=== PATIENT | female | born 1975 | race American Indian/Alaskan Native ===

== ENCOUNTER 2016-05-03 13:32 | Outpatient (CLI) | payer OTHER ==
[2016-05-03 14:00] LABS: Basophils % (Auto) 0.4 % (0.0-1.8); Eosinophils % (Auto) 0.1 % (0.0-4.3); Hematocrit 38.8 % (30.3-42.9); Hemoglobin 12.3 gm/dl (10.1-14.3); Mean Corpuscular HGB Conc 32 % (30-34); Mean Corpuscular Hemoglobin 26 pg (28-32); Mean Corpuscular Volume 83 fl (79-97); Platelet Count 346 K/mm3 (140-440); Red Blood Count 4.66 M/mm3 (3.65-5.03); Red Cell Distribution Width 14.1 % (13.2-15.2); White Blood Count 11.3 K/mm3 (4.5-11.0)
[2016-05-03 14:26] LABS: Alanine Aminotransferase 13 units/L (7-56); Albumin 3.4 g/dL (3.9-5); Albumin/Globulin Ratio 0.9 %; Alkaline Phosphatase 75 units/L (35-129); Anion Gap 20 mmol/L; BUN/Creatinine Ratio 11.25; Bilirubin,Total 0.5 mg/dL (0.1-1.2); Blood Urea Nitrogen 9 mg/dL (7-17); Calcium 8.9 mg/dL (8.4-10.2); Carbon Dioxide 25 mmol/L (22-30); Glucose 75 mg/dL (65-100); Iron 58 ug/dL (37-170); Potassium 3.7 mmol/L (3.6-5.0); Sodium 143 mmol/L (137-145); Total Iron Binding Capacity 296 mcg/dL (250-450)
[2016-05-07 16:49] LABS: Vitamin D, 25-OH, Total 24 ng/mL (30-100)
== END 2016-05-03 13:33 | disposition home or self-care (01) ==
LOC: LABHHL 13:32
PROVIDERS: ATTEND Specialist
DX: Z09 Encounter for follow-up examination after completed treatment for conditions other than malignant neoplasm (principal); K30 Functional dyspepsia; K90.49 Malabsorption due to intolerance, not elsewhere classified; K90.9 Intestinal malabsorption, unspecified; D50.9 Iron deficiency anemia, unspecified; E55.9 Vitamin D deficiency, unspecified; E61.8 Deficiency of other specified nutrient elements; E56.9 Vitamin deficiency, unspecified; Z98.84 Bariatric surgery status
CPT/HCPCS: 36415; 80053; 82306; 82607; 83550; 83970; 84425; 85025